=== PATIENT | male | born 1950 | race Caucasian/White ===

== ENCOUNTER → 2023-08-24 | Outpatient (CLI) | payer MEDICARE ==
--- NOTE | 2023-08-24 09:54 | XR ---
EXAMINATION TYPE: XR lumbosacral spine min 4V DATE OF EXAM: 08/24/2023 COMPARISON: None HISTORY: Low back pain TECHNIQUE: 5 view lumbar spine FINDINGS: Some facet degenerative changes present L4-5 and L5-S1. No spondylolytic defects are eviden t. There are 5 lumbar-type vertebral bodies. Pedicles are intact. There is loss of disc height at L4- 5 some mild vacuum disc phenomenon. Narrowing of the L5-S1 disc height is present. Some mild posterio r disc space narrowing is present L3-4. Vertebral body heights are preserved. IMPRESSION: 1. Mild degenerative disc change and facet changes lower lumbar spine
== END | disposition home or self-care (01) ==
LOC: RADXRMAIN 09:16
PROVIDERS: ATTEND Internal Medicine
DX: M51.36 Other intervertebral disc degeneration, lumbar region (principal)
CPT/HCPCS: 72110